=== PATIENT | female | born 1930 | race Caucasian/White ===

== ENCOUNTER → 2018-12-30 | Outpatient (CLI) | payer MEDICARE ==
[~2018-12-30] MED LIST: ASPI-1181 PO; ATOR40TA71 PO; CHOL100046 PO; FOLI1TAB15 PO; LEVO25TA54 PO; MECL-111 PO; METO25TA6 PO; OXYB10TA PO; PANT40TA25 PO; RAMI5CAP66 PO
== END | disposition home or self-care (01) ==
LOC: RAH 12:14
PROVIDERS: ATTEND Internal Medicine
DX: K57.30 Diverticulosis of large intestine without perforation or abscess without bleeding (principal); K59.00 Constipation, unspecified; M47.816 Spondylosis without myelopathy or radiculopathy, lumbar region; M41.86 Other forms of scoliosis, lumbar region; Z90.49 Acquired absence of other specified parts of digestive tract; Z90.710 Acquired absence of both cervix and uterus
CPT/HCPCS: 74176

== ENCOUNTER 2018-12-31 09:45 | Inpatient (IN) | payer MEDICARE | END 2019-01-24 03:07 | disposition EXP | LOC: EDH 09:45 → 2BH 01-10 09:30 → EDHIP 13:05 → 3DH 14:16 | PROC: 5A1955Z Respiratory Ventilation, Greater than 96 Consecutive Hours (ICD-10-PCS; principal; 2019-01-06 15:15) | PROC: 0D1M0Z4 Bypass Descending Colon to Cutaneous, Open Approach (ICD-10-PCS; 2019-01-06 15:15) | DX: A41.9 Sepsis, unspecified organism (principal); R65.21 Severe sepsis with septic shock; E43 Unspecified severe protein-calorie malnutrition; I50.23 Acute on chronic systolic (congestive) heart failure; N17.0 Acute kidney failure with tubular necrosis; J96.01 Acute respiratory failure with hypoxia; J18.9 Pneumonia, unspecified organism; A09 Infectious gastroenteritis and colitis, unspecified; K57.92 Diverticulitis of intestine, part unspecified, without perforation or abscess without bleeding; K56.7 Ileus, unspecified; J44.1 Chronic obstructive pulmonary disease with (acute) exacerbation; E46 Unspecified protein-calorie malnutrition; J90 Pleural effusion, not elsewhere classified; K92.2 Gastrointestinal hemorrhage, unspecified; C20 Malignant neoplasm of rectum; J44.0 Chronic obstructive pulmonary disease with (acute) lower respiratory infection; E86.0 Dehydration; J44.9 Chronic obstructive pulmonary disease, unspecified; K56.41 Fecal impaction; Z99.3 Dependence on wheelchair; R32 Unspecified urinary incontinence; R09.02 Hypoxemia; R00.0 Tachycardia, unspecified ==